=== PATIENT | male | born 1950 | race Caucasian/White ===

== ENCOUNTER → 2021-04-23 08:25 | Outpatient (CLI) | payer MEDICARE, OTHER, SELFPAY ==
[2021-04-23 14:13] LABS: Hemoglobin A1C% w Est Avg Glu 7.6 % (4.0-6.0)
== END ==
PROVIDERS: Family Provider Internal Medicine; PCP Student in an Organized Health Care Education/Training Program; Referring Provider Student in an Organized Health Care Education/Training Program; Visit Provider Student in an Organized Health Care Education/Training Program
DX: E11.9 Type 2 diabetes mellitus without complications (principal)
CPT/HCPCS: 36415; 83036

== ENCOUNTER → 2021-09-28 08:52 | Outpatient (CLI) | payer MEDICARE, OTHER, SELFPAY ==
[2021-09-28 09:37] LABS: Hemoglobin A1C% w Est Avg Glu 8.1 % (4.0-6.0)
[2021-09-28 10:21] LABS: Cholesterol 94 mg/dL (140-199); HDL Cholesterol 42 mg/dL (40-60); LDL Cholesterol Calculated 25 mg/dL (<100); Triglycerides 134 mg/dL (35-150)
[2021-09-28 10:57] LABS: Creatinine Urine Random 118.8 mg/dL
[2021-09-28 11:07] LABS: Microalbumi Creatinin Ratio Ur 15.9 ug/mg CR (<30); Microalbumin Urine Random 1.9 mg/dL (0-1.6)
== END ==
PROVIDERS: Family Provider Internal Medicine; PCP Student in an Organized Health Care Education/Training Program; Referring Provider Student in an Organized Health Care Education/Training Program; Visit Provider Student in an Organized Health Care Education/Training Program
DX: E11.69 Type 2 diabetes mellitus with other specified complication (principal); E11.9 Type 2 diabetes mellitus without complications; E78.5 Hyperlipidemia, unspecified
CPT/HCPCS: 36415; 80061; 82043; 82570; 83036

== ENCOUNTER → 2022-04-03 11:39 | Outpatient (CLI) | payer MEDICARE, OTHER, SELFPAY ==
[2022-04-03 12:38] LABS: Hemoglobin A1C% w Est Avg Glu 6.9 % (4.0-6.0)
== END ==
PROVIDERS: Family Provider Internal Medicine; PCP Student in an Organized Health Care Education/Training Program; Referring Provider Student in an Organized Health Care Education/Training Program; Visit Provider Student in an Organized Health Care Education/Training Program
DX: E11.9 Type 2 diabetes mellitus without complications (principal); Z79.4 Long term (current) use of insulin
CPT/HCPCS: 36415; 83036

== ENCOUNTER → 2022-04-16 09:46 | Outpatient (CLI) | payer MEDICARE, OTHER, SELFPAY ==
[2022-04-16 11:10] LABS: Add Manual Diff / Slide Review NO; Basophils Absolute Auto 100 /uL (0-100); Basophils Percent Auto 1.2 % (0-2); Eosinophils Absolute Auto 200 /uL (0-450); Eosinophils Percent Auto 3.8 % (2-4); Hematocrit 36.3 % (41-53); Hemoglobin 11.8 g/dL (13.5-17.5); Lymphocytes Absolute Auto 1600 /uL (1100-4500); Lymphocytes Percent Auto 23.8 % (25-40); Mean Corpuscular HGB Conc 32.5 % (30-36); Mean Corpuscular Volume 86.1 fL (80-100); Monocytes Absolute Auto 500 /uL (0-900); Monocytes Percent Auto 7.8 % (3-14); Neutrophils Absolute Auto 4200 /uL (1500-7000); Neutrophils Percent Auto 63.4 % (50-75); Platelet Count 293 X10^3/uL (150-400); Red Blood Cell Count 4.21 X10^6/uL (4.5-5.9); Red Cell Distribution Width 18.2 % (11.6-14.8); White Blood Cell Count 6.6 X10^3/uL (4.5-11.0)
[2022-04-16 11:38] LABS: Alanine Aminotransferase 20 IU/L (<50); Albumin 4.3 g/dL (3.5-5.0); Albumin Globulin Ratio 1.3 (1.0-2.8); Alkaline Phosphatase 80 U/L (38-126); Aspartate Aminotransferase 22 IU/L (17-59); BUN Creatinine Ratio 17.2 (6-22); Bilirubin Total 1.1 mg/dL (0.2-1.3); Blood Urea Nitrogen 16 mg/dL (9-20); Calcium 9.3 mg/dL (8.4-10.2); Carbon Dioxide 22 mmol/L (22-32); Chloride 108 mmol/L (98-107); Estimated Glomerular Filt Rate > 60 mL/min (>60); Globulin 3.3 g/dL (1.7-4.1); Glucose 122 mg/dL (80-110); HEMOLYSIS < 15 (0-50); Potassium 4.5 mmol/L (3.4-5.1); Sodium 142 mmol/L (137-145); Total Protein 7.6 g/dL (6.3-8.2)
[2022-04-21 17:12] LABS: Aldosterone/Renin Activity Rat <.1 (0.0-30.0); Plama Renin, LC/MS/MS 6.829 ng/mL/hr (0.167-5.380)
== END ==
PROVIDERS: Family Provider Internal Medicine; PCP Student in an Organized Health Care Education/Training Program; Referring Provider Student in an Organized Health Care Education/Training Program; Visit Provider Student in an Organized Health Care Education/Training Program
DX: E11.9 Type 2 diabetes mellitus without complications (principal); I10 Essential (primary) hypertension; Z79.899 Other long term (current) drug therapy
CPT/HCPCS: 36415; 80053; 82088; 84244; 84443; 85025

== ENCOUNTER → 2022-05-02 11:15 | Outpatient (CLI) | payer MEDICARE, OTHER, SELFPAY ==
[2022-05-02 14:06] LABS: COVID19 -Nasal RAPID Negative (Negative)
== END ==
PROVIDERS: Family Provider Internal Medicine; PCP Student in an Organized Health Care Education/Training Program; Referring Provider Internal Medicine; Visit Provider Internal Medicine
DX: Z20.822 Contact with and (suspected) exposure to COVID-19 (principal)
CPT/HCPCS: 87635; C9803

== ENCOUNTER → 2022-05-02 11:19 | Outpatient (CLI) | payer MEDICARE, OTHER, SELFPAY ==
--- NOTE | 2022-05-05 08:17 | PM.PFT.1 ---
Pulmonary Function Test Referral & Results Date Patient Seen: 05/02/22 Requesting provider: Ellis Galloway Results: The spirometry demonstrates an FVC of 3.18 L which is 71% of predicted. The FEV1 was measured at 2.40 L which is 73% of predicted. The FEV1/FVC ratio was 75 which is 103% of predicted. Following the administration of bronchodilator there was a 30% improvement in FEF 25-75%. Lung volumes show an SVC of 3.28 L which is 70% of predicted. The diffusing capacity was measured at 15.64 which is 46% of predicted. No hemoglobin value was provided, so no correction for potential anemia could be made, if appropriate. The maximum voluntary ventilation was normal Interpretation: This study demonstrates possibly mild obstructive lung disease based on reduction in FEV1 although FEV1/FVC ratio is preserved. There is evidence of benefit following bronchodilator in small airway flow based on improvement in FEF 25-75% as above There is also a mild reduction in SVC suggesting mild restrictive lung disease is also present which may explain the abnormality in the FEV1 above There is a moderate reduction in diffusing capacity suggesting moderate disease at the capillary alveolar level Clinical correlation suggested
== END ==
PROVIDERS: Family Provider Internal Medicine; PCP Student in an Organized Health Care Education/Training Program; Referring Provider Student in an Organized Health Care Education/Training Program; Visit Provider Student in an Organized Health Care Education/Training Program
DX: R06.09 Other forms of dyspnea (principal); R09.02 Hypoxemia; Z87.891 Personal history of nicotine dependence; J98.8 Other specified respiratory disorders; Z20.822 Contact with and (suspected) exposure to COVID-19
CPT/HCPCS: 87635; 94060; 94726; 94729; C9803

== ENCOUNTER → 2022-05-13 11:34 | Outpatient (CLI) | payer MEDICARE, OTHER, SELFPAY ==
--- NOTE | 2022-05-13 11:39 | DI.CT.S_ITS ---
PROCEDURE: CT CHEST HIGH RESOLUTION INDICATIONS: Abnormal PFT; alveolar diffusion defect TECHNIQUE: Noncontrast 1.0 and 5.0 mm thick contiguous axial sections from the pulmonary apex to the posterior costophrenic angles, with 7 mm thick coronal and sagittal MIP reformats. 1 mm thick dynamic expiratory images acquired through the upper, mid, and lower lungs. 1.0 mm thick axial sections acquired from the yasir to the posterior costophrenic angles in the prone end-inspiration position. For radiation dose reduction, the following was used: automated exposure control, adjustment of mA and/or kV according to patient size. COMPARISON: None. FINDINGS: Image quality: Adequate. Lungs: Mild-moderate emphysema present, suspect centrilobular and paraseptal. There are peripheral/subpleural reticular opacities present bilaterally. Possible honeycombing present, for example at the anterolateral right middle lobe. No substantial ground-glass opacity or diffuse micronodularity. No definite or substantial air trapping identified. Nonspecific mosaic attenuation visualized. Pleura: No pleural effusions or pneumothorax. Mediastinum: Multivessel coronary artery calcifications and/or stents. No pericardial effusion. The main pulmonary artery is enlarged measuring 3.3 cm. Fluid and/or ingested material present in the esophagus. Bones and chest wall: Multilevel degenerative change of the visualized spine. Abdomen: A gastric lap band is present. IMPRESSION: 1. Mild-moderate emphysema. 2. 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 Possible honeycombing present. 3. Enlargement of the main pulmonary artery, a finding which can be seen in the setting of pulmonary hypertension. Dictated by: Noah Hernandez M.D. on 05/13/2022 at 15:00 Approved by: Noah Hernandez M.D. on 05/13/2022 at 15:29
== END ==
PROVIDERS: Family Provider Internal Medicine; PCP Student in an Organized Health Care Education/Training Program; Referring Provider Student in an Organized Health Care Education/Training Program; Visit Provider Student in an Organized Health Care Education/Training Program
DX: R94.2 Abnormal results of pulmonary function studies (principal); R09.02 Hypoxemia; J43.9 Emphysema, unspecified
CPT/HCPCS: 71250

== ENCOUNTER → 2023-10-29 10:15 | Outpatient (CLI) | payer OTHER, SELFPAY ==
--- NOTE | 2023-10-29 10:16 | DI.ECHO.S_ITS ---
[place] [facility] : : [address] : : [place] : : [id number] : : Phone: [phone] Echocardiogram Report + + :Name: MURIEL PATHAK Study Date: 10/29/2023 Height: 71 in : :[facility] ReadingLocation: Weight: 241 lb : : Gender: Male BSA: 2.3 m2 : :: 1950 Age: 73 yrs BP: 124/75 mmHg: :Reason For Study: HEART DISEASE : :Ordering Physician: ROHIT, : :MARGY Performed By: Georgi Cheng : :Referring: MARGY BEE : + + Interpretation Summary Sinus bradycardia with heart rate 46-51 bpm during the exam. Mildly dilated LV with borderline LVH; EF is 55-60%. Stage I diastolic dysfunction. Mild biatrial enlargement. Mild aortic regurgitation in the setting of trileaflet valve with moderately thickened and calcified leaflets. Estimated PA systolic pressure is 60 mm Hg assuming RA pressure of 3 mm Hg. No prior study available for comparison. Recommend cardiology consultation to discuss sinus bradycardia and elevated PA systolic pressure. Procedure: A two-dimensional transthoracic echocardiogram with color flow and Doppler was performed. The study quality was technically adequate. There is no prior echocardiogram noted for this patient. The patient was in sinus bradycardia with heart rates between 46-51 bpm during the exam. Left Ventricle: Left ventricular wall thickness is borderline increased. The left ventricle is mildly dilated. The ejection fraction is estimated to be 55- 60%. Right Ventricle: The right ventricle is mild to moderately dilated. The right ventricular systolic function is normal. Atria: The left atrium is mildly dilated. The right atrium is mildly dilated. The interatrial septum grossly appears intact with no obvious evidence for an atrial septal defect. Mitral Valve: The mitral valve is normal in structure and function. There is no mitral valve stenosis. There is trace mitral regurgitation. Aortic Valve: The aortic valve is trileaflet. There is no aortic valve stenosis. There is mild to moderate aortic regurgitation. Tricuspid Valve: The tricuspid valve is normal in structure and function. There is no tricuspid stenosis. There is moderate tricuspid regurgitation. The right ventricular systolic pressure is estimated to be at least 59.8 mmHg based on an estimated right atrial pressure of 3 mm Hg. Pulmonic Valve: The pulmonic valve is not well visualized. There is no pulmonic valvular stenosis. There is no pulmonic valvular regurgitation. Great Vessels: The aortic root is normal size. The dimensions of the ascending aorta are normal. The IVC is of normal diameter and collapses greater than 50% with a sniff. This suggests a low right atrial pressure of 3 mm Hg. Pericardium/ Pleura There is no pericardial effusion. There is no pleural effusion. MMode/2D Measurements & Calculations LVIDd: 6.6 cm LVOT diam: 2.5 cm LVIDs: 4.7 cm Ao root diam: 3.6 cm FS: 29.3 % asc Aorta Diam: 3.7 cm IVSd: 0.92 cm Ao Arch Diam (Prox Trans): 2.8 cm LVPWd: 1.1 cm LV saldana. diameter/BSA (cm/m^2): 2.9 LV sys. diameter/BSA (cm/m^2): 2.0 LA A2 area: 22.8 cm2 RA long axis: 5.7 cm LA A4 area: 24.1 cm2 RA area: 19.1 cm2 LA length (vol): 6.0 cm RA vol: 54.3 ml LA vol: 77.4 ml RA : 23.8 ml/m2 LA vol index: 33.9 ml/m2 IVC diam: 1.9 cm RVD1 (basal): 4.6 cm RVD2 (mid): 4.3 cm TAPSE: 3.2 cm Doppler Measurements & Calculations Ao V2 max: 180.7 cm/sec LVOT Max Daryn: 126.0 cm/sec Ao V2 mean: 122.5 cm/sec LV V1 max P.4 mmHg Ao max P.1 mmHg LV V1 VTI: 31.8 cm Ao mean P.8 mmHg ZACHARY(I,D): 3.6 cm2 Ao V2 VTI: 42.9 cm ZACHARY(V,D): 3.4 cm2 sev ratio: 0.74 ZACHARY indexed to BSA (cm^2/m^2): 1.6 MV E max daryn: 63.9 cm/sec TR max daryn: 377.0 cm/sec MV A max daryn: 101.3 cm/sec TR max P.8 mmHg MV E/A: 0.63 PA V2 max: 132.9 cm/sec Med Peak E' Daryn: 4.6 cm/sec PA V2 mean: 95.2 cm/sec E/E' med: 13.9 PA mean P.0 mmHg Lat Peak E' Daryn: 6.2 cm/sec PA pr(Accel): 49.9 mmHg E/E' lat: 10.3 E/e' average: 12.1 MV dec time: 0.29 sec SV(LVOT): 155.6 ml Electronically signed by: Janis Hagan M.D. on [place] Physician:10/30/2023 01:18 AM
== END ==
PROVIDERS: Family Provider Internal Medicine; Visit Provider Physician Assistant
DX: Z13.6 Encounter for screening for cardiovascular disorders (principal); I08.2 Rheumatic disorders of both aortic and tricuspid valves
CPT/HCPCS: 93306